=== PATIENT | female | born 1955 | race Caucasian/White ===

== ENCOUNTER 2021-10-23 06:32 | Day surgery (SDC) | payer OTHER ==
[~2021-10-23] VITALS: Ht 169 cm; Wt 84.0 kg
[~2021-10-23 06:32] MED LIST: AMITIZA24 MCG PO; ANTIVERT25 MG PO; CLARITIN10 MG PO; COMBIVENT RESPIM4 GM PO; CYCLOBENZAPRINE10 MG PO; DOCUSATE SODIU100 MG PO; EZETIMIBE10 MG PO; LEVOTHYROXINE75 MCG PO; MELOXICAM15 MG PO; METOPROLOL SUCC50 MG PO; MIRALAX17 GM PO; MORPHINE SULFAT20 M1 PO; MORPHINE SULFAT30 M3 PO; MORPHINE SULFAT30 M5 PO; MS CONTIN15 MG PO; MS CONTIN30 M1 PO; OXYCODONE-ACET1 EAC1 PO; PROMETHAZINE 2525 MG PO; SYMBICORT 16010.2 GM INH; TIZANIDINE HCL2 MG PO; TOPAMAX50 MG PO; VALSARTAN80 MG PO
[2021-10-23] MEDS ORDERED: PERCOCET 5-3251 EACH PO (07:05)
[2021-10-23] MEDS ORDERED: PROBIOTIC1 EAC2 PO (07:06)
--- NOTE | 2021-10-23 14:59 | NUR ---
PT. HAD A RTKR THIS DATE. PT. WILL DC HOME WITH BOYFRIEND. ANTICIPATED D/C IS 10/24/21. [facility] TO DELIVER A RW. PT. REQUESTED [facility]. FIRST APPT. IS 10/25/21 @ 1:45 P.M.
[2021-10-23 18:20] LABS: BUN/CREAT RATIO (CALC) 27.4 RATIO; CREATININE 0.62 mg/dL (0.51-0.95); POTASSIUM 4.6 mmol/L (3.5-5.1)
[2021-10-24 05:59] LABS: BASOPHIL 0.9 % (0-2); EOSINOPHIL 0.7 % (0-7); HCT 34.1 % (37.0-47.0); HGB 10.6 g/dl (12.5-16.0); LYMPHOCYTE 26.7 % (15-48); MCH 27.6 pg (25.0-31.0); MCHC 31.1 g/dL (32.0-36.0); MCV 88.8 fL (78.0-100.0); MONOCYTE 7.5 % (0-12); MPV 10.6 fL (6.0-9.5); NEUTROPHIL 63.9 % (41-80); NRBC 0; PLT 131 K/uL (150-400); RBC 3.84 M/uL (4.20-5.40); RDW 13.9 % (11.5-14.0); WBC 9.4 K/uL (4.0-10.5)
[2021-10-24 06:17] LABS: BUN/CREAT RATIO (CALC) 23.1 RATIO; CREATININE 0.78 mg/dL (0.51-0.95); POTASSIUM 3.9 mmol/L (3.5-5.1)
[2021-10-24] MEDS ORDERED: ASPIRIN EC81 MG PO ×2 (10:07→10:13)
[2021-10-24] MEDS ORDERED: FEOSOL325 MG PO ×2 (10:07→10:13)
--- NOTE | 2021-10-24 10:51 | NUR ---
PT D/C HOME THIS DATE WITH BOYFRIEND.
== END 2021-10-24 12:52 | disposition home or self-care (01) ==
LOC: FMS 06:32 → FAS 06:32 → FMS 09:03 → FAS 10-24 12:52
PROVIDERS: Nurse Practitioner Acute Care; Orthopaedic Surgery
DX: M17.11 Unilateral primary osteoarthritis, right knee (principal); I10 Essential (primary) hypertension; J44.9 Chronic obstructive pulmonary disease, unspecified; E78.5 Hyperlipidemia, unspecified; E03.9 Hypothyroidism, unspecified; G89.29 Other chronic pain; G47.33 Obstructive sleep apnea (adult) (pediatric); Z88.0 Allergy status to penicillin; Z88.6 Allergy status to analgesic agent; Z88.8 Allergy status to other drugs, medicaments and biological substances; Z87.891 Personal history of nicotine dependence; Z79.891 Long term (current) use of opiate analgesic; Z79.899 Other long term (current) drug therapy
CPT/HCPCS: 36415; 73560; 80048; 85025; 86850; 86900; 86901; 94010; 94762; 97110; 97162; 97166; 97530-GP; 97535; C1713; C1776; J0171; J1100; J1170; J1885; J2250; J2270; J2405; J2704; J2795; J3010; J3370; J7040; J7050; J7120